=== PATIENT | female | born 1945 | race African-American/Black ===

== ENCOUNTER 2017-07-22 17:45 | Emergency (ER) | payer OTHER ==
[~2017-07-22] VITALS: Ht 170.2 cm; Wt 65.0 kg
[~2017-07-22 17:45] MED LIST: IBUP800T23 PO; LORT5TAB PO; Z.0.UNKNOWN
[2017-07-22 17:47] VITALS: BP 183/88; PULSE 76; RESP 20; TEMP 98.3; O2SAT 99
--- NOTE | 2017-07-22 19:57 | PD ---
HPI . Left great toe injury Chief Complaint: Musculoskeletal Complaint Time Seen by Provider: 19:46 Travel History International Travel<30 days: No Contact w/Intl Traveler<30days: No Traveled to known affect area: No History of Present Illness HPI This patient presents with the chief complaint of an injury to her left great toe. She stumped her toe 3 weeks ago. She states that her daughter made her come here tonight to have it checked to make sure that it wasn't infected. Her pain is very minimal and is rated as 0-2/10. No modifying factors. PFSH Past Medical History Diminished Hearing: No Past Surgical History Hysterectomy: Yes Other Surgery: Yes (LIPOMA X5 REMOVED FROM RIGHT ARM, BACK, SIDE) Social History Alcohol Use: Yes (GLASS OF RED WINE DAILY) Tobacco Use: Yes (QUIT 2000) Substance Use: No Allergies-Medications (Allergen,Severity, Reaction): Coded Allergies: No Known Allergies (Verified , 07/22/17) Reported Meds & Prescriptions Reported Meds & Active Scripts Active Ibuprofen 800 Mg Tab 800 Mg PO Q6 PRN Lortab 5/500 (Acetaminophen/Hydrocodone Bitart) 5 Mg/500 Mg Tab 1 Tab PO Q6 PRN Reported Unknown Meds (Miscellaneous Medication) Misc CHOLESTEROL MED Review of Systems Except as stated in HPI: all other systems reviewed are Neg Musculoskeletal: Positive: Pain Physical Exam Narrative GENERAL: Awake and alert and in no acute distress. SKIN: Warm and dry. She does have a small sliver of a subungual hematoma of the left great toenail. HEAD: Normocephalic/atraumatic. EYES: Pupils are equal. Extraocular movements are intact. NECK: Full range of motion without pain. CARDIOVASCULAR: Regular rate and rhythm. RESPIRATORY: Nonlabored. MUSCULOSKELETAL: Minimal tenderness to palpation of the left great toe. No deformity. NEUROLOGICAL: Nonfocal. PSYCHIATRIC: Appropriate mood and affect. Data Data Last Documented VS Vital Signs Date Time Temp Pulse Resp B/P (MAP) Pulse Ox O2 Delivery O2 Flow Rate FiO2 07/22/17 17:47 98.3 76 20 183/88 (119) 99 Room Air Orders Orders Toe (Min 2vws) (07/22/17 19:46) MDM Medical Decision Making Medical Screen Exam Complete: Yes Emergency Medical Condition: Yes Differential Diagnosis Differential diagnosis of extremity trauma includes but is not limited to fracture, sprain or strain, dislocation, contusion Narrative Course This patient presents for the evaluation of an injury to her left great toe. X- ray is pending. X-ray to my interpretation shows a nondisplaced fracture of the distal phalanx of the left great toe. She is having minimal pain. She will be discharged home with instructions to take Tylenol as needed for pain. Diagnosis Primary Impression: Fracture of left great toe Qualified Codes: S92.425A - Nondisplaced fracture of distal phalanx of left great toe, initial encounter for closed fracture Patient Instructions: General Instructions, Toe Fracture (DC) Disposition: 01 DISCHARGE HOME Condition: Stable Shabana Amezquita MD Jul 22, 2017 19:57
--- NOTE | 2017-07-22 20:23 | RADRPT ---
EXAM DATE/TIME: 07/22/2017 19:56 [facility] COMPARISON: No previous studies available for comparison. INDICATIONS : Patient fell and hit left great toe. Complains of left great toe pain and swelling. MEDICAL HISTORY : None. SURGICAL HISTORY : None. ENCOUNTER: Initial ACUITY: 3 days PAIN SCORE: 4/10 LOCATION: Left Great toe FINDINGS: AP, lateral and oblique views of the first digit were obtained including an AP view of the foot. This demonstrates a transverse fracture through the first distal phalanx. There is slight distraction and there are is overlying soft tissue swelling. There are no other bony abnormalities. CONCLUSION: Transverse fracture through the first distal phalanx. Keshawn Dixon MD on July 22, 2017 at 20:20 Board Certified Radiologist. This report was verified electronically.
== END 2017-07-22 21:01 | disposition home or self-care (01) ==
LOC: NEPD 17:45
DX: S92.425A Nondisplaced fracture of distal phalanx of left great toe, initial encounter for closed fracture (principal); W22.8XXA Striking against or struck by other objects, initial encounter
CPT/HCPCS: 73660; 99283